=== PATIENT | female | born 1990 | race Caucasian/White ===

== ENCOUNTER 2019-08-14 14:25 | Emergency (ER) | payer SELFPAY ==
[~2019-08-14] VITALS: Ht 160 cm; Wt 108.9 kg
[~2019-08-14 14:25] MED LIST: ACET-8386 PO; DOCU-299 PO
[2019-08-14 14:28] VITALS: BP 132/86
[2019-08-14 15:22] VITALS: BP 132/86
== END 2019-08-14 15:23 | disposition home or self-care (01) ==
LOC: MED 14:25
DX: H10.9 Unspecified conjunctivitis (principal); I10 Essential (primary) hypertension; Z79.899 Other long term (current) drug therapy
CPT/HCPCS: 99283

== ENCOUNTER 2023-04-08 15:44 | Emergency (ER) | payer MEDICAID ==
[~2023-04-08] VITALS: Ht 160 cm; Wt 97.1 kg
[~2023-04-08 15:44] MED LIST changes: -ACET-8386 PO; +ACET-8905 PO
[2023-04-08 16:24] VITALS: BP 113/67; PULSE 64; RESP 16; TEMP 98; O2SAT 100
[2023-04-08] MEDS ORDERED: IBUP-2213 PO (17:21)
[2023-04-08] MEDS ORDERED: KETOROLAC 30 MG/ML VIAL IM ONE (17:30)
--- NOTE | 2023-04-08 17:40 | NUR ---
1740 KNEE IMMOBILIZER APPLIED TO L KNEE. + CMS
--- NOTE | 2023-04-08 17:53 | NUR ---
Patient discharged with v/s stable. Written and verbal after care instructions given and explained. Patient verbalized understanding. Ambulatory with steady gait. All questions addressed prior to discharge. Advised to follow up with PMD.
== END 2023-04-08 17:53 | disposition home or self-care (01) ==
LOC: MED 15:44
DX: S83.8X2A Sprain of other specified parts of left knee, initial encounter (principal); I10 Essential (primary) hypertension; Z79.899 Other long term (current) drug therapy; W01.0XXA Fall on same level from slipping, tripping and stumbling without subsequent striking against object, initial encounter; Y93.89 Activity, other specified; Y92.89 Other specified places as the place of occurrence of the external cause; Y99.8 Other external cause status
CPT/HCPCS: 29505; 73562; 81025; 96372; 99283; J1885